=== PATIENT | male | born 1945 | race Caucasian/White ===

== ENCOUNTER 2017-05-18 06:38 | Day surgery (SDC) | payer MEDICARE, OTHER ==
[2017-05-18] VITALS (9 sets, daily range): BP systolic 118–132; BP diastolic 74–83; PULSE 58–78; RESP 16–18; TEMP 97.7–98.2; O2SAT 96–99
[~2017-05-18 06:38] MED LIST: ANDR1GEL TD; ASPI81TA82 PO; CARD240C6 PO; FURO40TA PO; HYOS0.129 PO; LIBRAX PO; LISI-363 PO; LORTA5 PO; MAGN30TA2 PO; POTA10TA48 PO; PROT40TA PO; RANI150T PO; TAB-TAB PO; TAMS0.4C67 PO; VITATAB11 PO
[2017-05-18] MEDS ORDERED: POVIDONE IODINE 5% (ANTISEPSIS KIT) 4 APPLICATIONS EACH NARE PRN (07:15)
[2017-05-18] MEDS ORDERED: SODIUM CHLORID 0.9% 500 ML IV PRN (07:15)
[2017-05-18] MEDS ORDERED: LACTATED RINGER'S 1000 ML IV PRN (07:15)
[2017-05-18] MEDS ORDERED: CHLORHEXIDINE GLUCONATE 2 % 1 PACK (2 CLOTHS) TOPICAL PRN (07:15)
[2017-05-18] MEDS ORDERED: TEST2.5G TOPICAL (07:35)
[2017-05-18] MEDS ORDERED: BUME1TAB PO (07:35)
[2017-05-18] MEDS ORDERED: FINA5TAB2 PO (07:35)
[2017-05-18] MEDS ORDERED: RANI150T PO (07:35)
[2017-05-18] MEDS ORDERED: MAGN100T2 PO (07:35)
[2017-05-18] MEDS ORDERED: MULTTAB67 PO (07:35)
[2017-05-18] MEDS ORDERED: ASPI81TA23 PO (07:35)
[2017-05-18] MEDS ORDERED: VITATAB11 PO (07:35)
[2017-05-18] MEDS ORDERED: HYOS1TAB9 PO (07:35)
[2017-05-18] MEDS ORDERED: PROT40TA PO (07:35)
[2017-05-18] MEDS ORDERED: TAMS5CAP PO (07:35)
[2017-05-18] MEDS ORDERED: APIX2.5T PO (07:35)
[2017-05-18] MEDS ORDERED: METO25TA3 PO (07:35)
[2017-05-18] MEDS ORDERED: [UNRECOGNIZED DRUG - OTHER] PO (07:35)
[2017-05-18 09:05] LABS: AUTOMATED NEUTROPHIL # 2.5 TH/MM3 (1.8-7.7); BASOPHIL % 0.6 % (0.0-2.0); EOSINOPHIL # 0.1 TH/MM3 (0-0.4); EOSINOPHIL % 1.5 % (0.0-4.0); HEMATOCRIT 36.2 % (39.0-51.0); HEMOGLOBIN 12.2 GM/DL (13.0-17.0); LYMPH % 32.9 % (9.0-44.0); LYMPHOCYTE # 1.4 TH/MM3 (1.0-4.8); MEAN CELL VOLUME 84.9 FL (80.0-100.0); MEAN CORPUSCULAR HEMOGLOBIN 28.6 PG (27.0-34.0); MEAN CORPUSCULAR HGB CONC 33.7 % (32.0-36.0); MEAN PLATELET VOLUME 8.2 FL (7.0-11.0); MONOCYTE # 0.3 TH/MM3 (0-0.9); PLATELET COUNT 170 TH/MM3 (150-450); RED BLOOD COUNT 4.27 MIL/MM3 (4.50-5.90); RED CELL DISTRIBUTION WIDTH 16.7 % (11.6-17.2); WHITE BLOOD COUNT 4.4 TH/MM3 (4.0-11.0)
[2017-05-18 10:13] LABS: ALBUMIN 3.1 GM/DL (3.4-5.0); BLOOD UREA NITROGEN 18 MG/DL (7-18); CREATININE 0.97 MG/DL (0.60-1.30); GLOMERULAR FILTRATION RATE 76 ML/MIN (>89); GLUCOSE,RANDOM 89 MG/DL (74-106); TOTAL PROTEIN 6.5 GM/DL (6.4-8.2)
[2017-05-18 10:14] LABS: ALKALINE PHOSPHATASE 95 U/L (45-117); ALT (GPT) 30 U/L (12-78); AST (GOT) 20 U/L (15-37); BICARBONATE 27.1 MEQ/L (21.0-32.0); CALCIUM 8.9 MG/DL (8.5-10.1); CHLORIDE 108 MEQ/L (98-107); SODIUM (NA) 142 MEQ/L (136-145); TOTAL BILIRUBIN ADULT 0.4 MG/DL (0.2-1.0)
[2017-05-18] MEDS: SOTALOL HCL 80 MG TAB PO SCH ×3 (10:55→21:09)
[2017-05-18] MEDS: APIXABAN 5 MG TABLET PO SCH (19:43)
--- NOTE | 2017-05-18 20:11 | EKG ---
Date Performed: 05/18/2017 Time Performed: 07:06:36 PTAGE: 71 years EKG: Atrial fibrillation Right bundle branch block Inferior/lateral ST-T changes are nonspecific Low QRS voltages in precordial leads Compared to previous tracing, the patient now appears to be in atrial fibrillation Abnormal ECG PREVIOUS TRACING : 05/30/2015 13.17 DOCTOR: Rhiannon Silva Interpretating Date/Time 05/18/2017 20:10:15
--- NOTE | 2017-05-18 20:12 | EKG ---
Date Performed: 05/18/2017 Time Performed: 09:27:06 PTAGE: 71 years EKG: Possible ectopic atrial rhythm Right bundle branch block Inferior T wave changes are nonspe cific Low QRS voltages in precordial leads Compared to previous tracing, the patient is now in an ect opic rhythm Abnormal ECG NO PREVIOUS TRACING DOCTOR: Rhiannon Silva Interpretating Date/Time 05/18/2017 20:10:33
[2017-05-18] MEDS ORDERED: TAMSULOSIN HCL 0.4 MG CAP PO SCH (21:00)
[2017-05-18] MEDS ORDERED: FAMOTIDINE 20 MG TAB PO SCH (21:00)
[2017-05-19] VITALS (11 sets, daily range): BP systolic 131–147; BP diastolic 80–85; PULSE 54–71; RESP 16–18; TEMP 98.6; O2SAT 95–98
[2017-05-19] MEDS: SOTALOL HCL 80 MG TAB PO SCH (06:03)
--- NOTE | 2017-05-19 08:58 | PD.CARD.PN ---
Subjective Subjective Remarks No complaints Objective Medications Current Medications Medications (Trade) Dose Ordered Sig/Joanne Route Start Time Stop Time Status Last Admin Lactated Ringer's 1,000 ml @ 30 mls/hr Q24H PRN IV 05/18/17 07:15 05/21/17 07:14 Sodium Chloride 500 ml @ 30 mls/hr [id number] PRN IV 05/18/17 07:15 05/21/17 07:14 05/18/17 07:20 (Betadine 5% Antisepsis Kit) 1 applic GRAIN DRIER OPERATOR PRN EACH NARE 05/18/17 07:15 05/21/17 07:14 (Chlorhexidine 2% Cloth) 3 pack GRAIN DRIER OPERATOR PRN TOPICAL 05/18/17 07:15 05/21/17 07:14 (Eliquis) 5 mg BID PO 05/18/17 21:00 05/18/17 19:43 (Betapace) 80 mg Q8HR PO 05/18/17 09:30 05/19/17 06:03 (Bumetanide) 1 mg DAILY PO 05/19/17 09:00 (Proscar) 5 mg DAILY PO 05/19/17 09:00 (Protonix) 40 mg DAILY PO 05/19/17 09:00 (Flomax) 0.4 mg HS PO 05/18/17 21:00 (Pepcid) 20 mg HS PO 05/18/17 21:00 05/18/17 21:09 Vital Signs / I&O Vital Signs Date Time Temp Pulse Resp B/P (MAP) Pulse Ox O2 Delivery O2 Flow Rate FiO2 05/19/17 08:00 98 Room Air 05/19/17 08:00 54 05/19/17 08:00 98.6 56 16 147/85 (105) 98 05/19/17 07:00 55 05/19/17 06:11 60 05/19/17 05:00 58 05/19/17 04:00 70 05/19/17 03:40 62 18 131/80 (97) 95 05/19/17 03:15 61 05/19/17 02:00 71 05/19/17 01:00 62 05/19/17 00:05 62 05/18/17 23:16 97.7 60 18 130/83 (99) 96 05/18/17 23:00 58 05/18/17 22:00 64 05/18/17 21:29 97 Room Air 05/18/17 21:00 66 05/18/17 20:00 68 05/18/17 19:46 98.2 68 16 118/74 (89) 97 05/18/17 19:00 78 05/18/17 15:00 98.0 75 16 132/75 (94) 99 05/18/17 11:00 97.8 70 16 128/77 (94) 99 I/O 05/18/17 05/18/17 05/18/17 05/19/17 05/19/17 05/19/17 07:00 15:00 23:00 07:00 15:00 23:00 Intake Total 300 ml Output Total 400 ml Balance -100 ml Intake Oral 300 ml Output Urine Total 400 ml # Voids 4 Physical Exam Alert CV [id number] tele SR with RBBB. No VT or PVC's EKG nl QT Assessment and Plan Problem List: (1) Paroxysmal atrial fibrillation ICD Codes: I48.0 - Paroxysmal atrial fibrillation Plan: Cont. Eliquis 5mg bid, Sotalol 120mg bid Kade Bernal MD May 19, 2017 08:58
[2017-05-19] MEDS ORDERED: FINASTERIDE 5 MG TAB PO SCH (09:00)
[2017-05-19] MEDS ORDERED: BUMETANIDE 1 MG TAB PO SCH (09:00)
[2017-05-19] MEDS ORDERED: PANTOPRAZOLE SOD 40 MG DELAYED RELEASE TAB PO SCH (09:00)
--- NOTE | 2017-05-19 09:21 | MR ---
cc: JANICE ROCK DATE 05/18/2017 PREOPERATIVE DIAGNOSIS Atrial fibrillation PROCEDURE Synchronized cardioversion DESCRIPTION OF PROCEDURE The patient was brought to the cardiac laboratory assistant in the fasting state. Sedation was provided by Anesthesia. He received a synchronized shock at 150 joules, 250 joules and 360 joules. It was only after the last shock that he converted to sinus rhythm. There were no complications. CONCLUSION Successful cardioversion from A. fib back to sinus rhythm. PLAN I am going to be initiating Sotalol and keep him in overnight and let him go home tomorrow morning. MD CLAY Chowdhury/MIKALA /9:11 AM /9:09 AM
[2017-05-19] MEDS: APIXABAN 5 MG TABLET PO SCH (09:35)
--- NOTE | 2017-05-19 17:24 | EKG ---
Date Performed: 05/19/2017 Time Performed: 06:09:28 PTAGE: 71 years EKG: Sinus rhythm with borderline 1st degree A-V block Right bundle branch block Inferior T wave changes are nonspecif ic Low QRS voltages in precordial leads Abnormal ECG PREVIOUS TRACING : 05/18/2017 09.27 DOCTOR: Kacey Bhandari Interpretating Date/Time 05/19/2017 17:21:02
== END 2017-05-19 10:05 | disposition home or self-care (01) ==
LOC: HDOC 06:38 → HDIC 06:38 → HCPC 10:17 → HDOC 05-19 10:05
PROVIDERS: ATTEND Internal Medicine Cardiovascular Disease
DX: I48.0 Paroxysmal atrial fibrillation (principal); I11.9 Hypertensive heart disease without heart failure; I25.10 Atherosclerotic heart disease of native coronary artery without angina pectoris; E78.5 Hyperlipidemia, unspecified; Z79.01 Long term (current) use of anticoagulants
CPT/HCPCS: 00410; 80053; 85025; 92960; 93005; J7040

== ENCOUNTER 2017-06-28 05:35 | Emergency (ER) | payer MEDICARE, OTHER ==
[~2017-06-28] VITALS: Ht 182.9 cm; Wt 126.0 kg
[~2017-06-28 05:35] MED LIST changes: -ANDR1GEL TD; +ASPI81TA23 PO; -ASPI81TA82 PO; +BUME1TAB PO; -CARD240C6 PO; +FINA5TAB2 PO; -FURO40TA PO; -HYOS0.129 PO; +HYOS1TAB9 PO; -LIBRAX PO; -LISI-363 PO; -LORTA5 PO; +MAGN100T2 PO; -MAGN30TA2 PO; +MULTTAB67 PO; -POTA10TA48 PO; -TAB-TAB PO; -TAMS0.4C67 PO; +TAMS5CAP PO; +TEST2.5G TOPICAL; +[UNRECOGNIZED DRUG - OTHER] PO
[2017-06-28 05:44] VITALS: BP 164/76; PULSE 67; RESP 16; TEMP 97.6; O2SAT 97
[2017-06-28] MEDS ORDERED: traMADol HCL 50 MG TAB PO ONE (05:45)
[2017-06-28] MEDS ORDERED: SODIUM CHLORIDE 0.9% FLUSH 10 ML FLUSH IV FLUSH PRN (06:00)
[2017-06-28] MEDS ORDERED: VITA250T3 PO (06:27)
[2017-06-28] MEDS ORDERED: APIX5TAB PO (06:27)
[2017-06-28] MEDS ORDERED: BETA80TA PO (06:27)
--- NOTE | 2017-06-28 06:37 | PD ---
HPI . complaint Chief Complaint: Complaint Time Seen by Provider: 05:38 Travel History International Travel<30 days: No Contact w/Intl Traveler<30days: No Traveled to known affect area: No History of Present Illness HPI 71-year-old male complains of dysuria urgency frequency the past 2 days, over this past evening,. Patient noted having fever, and now hematuria. Patient has history of a penile implant states he has not feels any problem with same. PFSH Past Medical History Narrative Medical Past medical history reviewed, past surgical history reviewed Hx Anticoagulant Therapy: Yes Arthritis: Yes Heart Rhythm Problems: Yes (SVT) Cancer: Yes (SKIN) Cardiac Catheterization: Yes Cardiovascular Problems: Yes (a_fib, ablation and cardiovert) High Cholesterol: No Congestive Heart Failure: No Cerebrovascular Accident: No Diabetes: No Diminished Hearing: No Endocrine: No Gastrointestinal Disorders: Yes (IBS, GERD, JOHNSON'S ESOPH.) GERD: Yes Genitourinary: Yes (PENILE PROSTH., BPH) Hepatitis: No Hiatal Hernia: Yes (REPAIRED) Hypertension: Yes Immune Disorder: No Implanted Vascular Access Dvce: Yes Kidney Stones: No Musculoskeletal: Yes (CADE. QUADRICEP TEARS) Neurologic: Yes (CERVICAL NERVE PAIN) Psychiatric: Yes (PTSD) Reproductive: No Respiratory: No Renal Failure: No Thyroid Disease: No Ulcer: No Influenza Vaccination: Yes ?: Not Past Surgical History Abdominal Surgery: Yes (CHOLECYSTECTOMY, APPY, STOMACH SURGERY) AICD: No Body Medical Devices: PENILE PROSTHESIS Genitourinary Surgery: Yes (PENILE PROSTHESIS IMPL.) Joint Replacement: No Oral Surgery: Yes (TONSILLECTOMY) Pacemaker: No Other Surgery: Yes Social History Alcohol Use: No Tobacco Use: No Substance Use: No Allergies-Medications (Allergen,Severity, Reaction): Coded Allergies: adhesive (Unverified Allergy, Severe, SKIN BREAK, 06/28/17) Reported Meds & Prescriptions Reported Meds & Active Scripts Active Reported Vitamin C (Ascorbic Acid) 250 Mg Tab 1,000 Mg PO DAILY Eliquis (Apixaban) 5 Mg Tab 5 Mg PO BID Betapace (Sotalol HCl) 80 Mg Tab 60 Mg PO BID Vitamin B Complex (B-Complex Vitamins) 1 Tab 1 Mg PO DAILY Magnesium Citrate 100 Mg Tab Unknown Dose PO DAILY PRN Multiple Vitamin 1 Tab 1 Tab PO DAILY Finasteride 5 Mg Tab 5 Mg PO DAILY Do not crush. Testosterone Topical (Testosterone) 50 Mg/5 Gram (1 %) Gel 100 Mg TOPICAL DAILY [liberax] Unknown Dose PO DIRECTED Hyoscyamine (Hyoscyamine Sulfate) 0.125 Mg Tab 0.375 Mg PO Q4H Ranitidine (Ranitidine HCl) 150 Mg Tab 150 Mg PO HS Protonix (Pantoprazole Sodium) 40 Mg Tab 40 Mg PO DAILY Flomax (Tamsulosin HCl) 0.4 Mg Cap 0.4 Mg PO HS Bumetanide 1 Mg Tab 1 Mg PO DAILY Aspirin EC (Aspirin) 81 Mg Tabdr 81 Mg PO DAILY Narrative Medication Allergies and medications reviewed Review of Systems Except as stated in HPI: all other systems reviewed are Neg General / Constitutional: Positive: Fever, Chills Eyes: No: Visual changes HENT: No: Headaches Cardiovascular: No: Chest Pain or Discomfort Respiratory: No: Shortness of Breath Gastrointestinal: No: Abdominal Pain Genitourinary: Positive: Urgency, Frequency, Dysuria, Hematuria, No: Decreased Urinary Output, Oliguria, Pelvic Pain, Flank Pain Musculoskeletal: No: Pain Skin: No Rash Neurologic: No: Weakness Psychiatric: No: Depression Endocrine: No: Polydipsia Hematologic/Lymphatic: No: Easy Bruising Physical Exam Narrative GENERAL: Awake alert oriented 3 no acute distress vital signs afebrile normal stable SKIN: Warm and dry. Color is normal no diaphoresis on his HEAD: Atraumatic. Normocephalic. EYES: Pupils equal and round. No scleral icterus. No injection or drainage. ENT: No nasal bleeding or discharge. Mucous membranes pink and moist. NECK: Trachea midline. No JVD. Supple nontender full range of motion CARDIOVASCULAR: Regular rate and rhythm. S1-S2 no murmurs rubs gallops RESPIRATORY: No accessory muscle use. Clear to auscultation. Breath sounds equal bilaterally. GASTROINTESTINAL: Abdomen soft, non-tender, nondistended. Hepatic and splenic margins not palpable. MUSCULOSKELETAL: Extremities without clubbing, cyanosis, or edema. No obvious deformities. No CVA tenderness NEUROLOGICAL: Awake and alert. No obvious focal deficits PSYCHIATRIC: Appropriate mood and affect; insight and judgment normal. Data Data Last Documented VS Vital Signs Date Time Temp Pulse Resp B/P (MAP) Pulse Ox O2 Delivery O2 Flow Rate FiO2 06/28/17 06:17 20 06/28/17 05:44 97.6 67 164/76 (105) 97 Orders Orders Tramadol (Ultram) (06/28/17 05:45) Complete Blood Count With Diff (06/28/17 05:49) Comprehensive Metabolic Panel (06/28/17 05:49) Prothrombin Time / Inr (Pt) (06/28/17 05:49) Act Partial Throm Time (Ptt) (06/28/17 05:49) Urinalysis - C+S If Indicated (06/28/17 05:49) Iv Access Insert/Monitor (06/28/17 05:49) Ecg Monitoring (06/28/17 05:49) Oximetry (06/28/17 05:49) Sodium Chloride 0.9% Flush (Ns Flush) (06/28/17 06:00) Blood Culture (06/28/17 05:49) MDM Medical Decision Making Medical Screen Exam Complete: Yes Emergency Medical Condition: Yes Medical Record Reviewed: Yes Differential Diagnosis Urinary tract infection, pyelonephritis, Narrative Course Awaiting laboratory studies. Case signed out to oncoming ED attending pending all studies. Armando Price MD Jun 28, 2017 06:36
[2017-06-28 06:50] VITALS: O2SAT 98
[2017-06-28 06:55] VITALS: TEMP 98
[2017-06-28 07:02] LABS: AUTOMATED NEUTROPHIL # 6.8 TH/MM3 (1.8-7.7); BASOPHIL % 0.3 % (0.0-2.0); EOSINOPHIL # 0.1 TH/MM3 (0-0.4); EOSINOPHIL % 1.5 % (0.0-4.0); HEMATOCRIT 40.3 % (39.0-51.0); HEMOGLOBIN 13.4 GM/DL (13.0-17.0); LYMPH % 13.7 % (9.0-44.0); LYMPHOCYTE # 1.2 TH/MM3 (1.0-4.8); MEAN CELL VOLUME 84.2 FL (80.0-100.0); MEAN CORPUSCULAR HGB CONC 33.2 % (32.0-36.0); MONO % 5.3 % (0.0-8.0); MONOCYTE # 0.5 TH/MM3 (0-0.9); NEUT % 79.2 % (16.0-70.0); PLATELET COUNT 173 TH/MM3 (150-450); RED BLOOD COUNT 4.78 MIL/MM3 (4.50-5.90); RED CELL DISTRIBUTION WIDTH 16.3 % (11.6-17.2); WHITE BLOOD COUNT 8.6 TH/MM3 (4.0-11.0)
[2017-06-28 07:14] LABS: CHLORIDE 106 MEQ/L (98-107); SODIUM (NA) 138 MEQ/L (136-145)
[2017-06-28 07:17] LABS: PROTHROMBIN TIME - PATIENT 10.1 SEC (9.8-11.6)
[2017-06-28 07:18] LABS: CALCIUM 9.1 MG/DL (8.5-10.1)
[2017-06-28 07:19] LABS: ALBUMIN 3.4 GM/DL (3.4-5.0); BICARBONATE 24.1 MEQ/L (21.0-32.0); BLOOD UREA NITROGEN 15 MG/DL (7-18); GLUCOSE,RANDOM 81 MG/DL (74-106)
[2017-06-28 07:22] LABS: ALT (GPT) 27 U/L (12-78); AST (GOT) 18 U/L (15-37); CREATININE 0.88 MG/DL (0.60-1.30); GLOMERULAR FILTRATION RATE 85 ML/MIN (>89)
[2017-06-28 07:24] LABS: TOTAL BILIRUBIN ADULT 0.7 MG/DL (0.2-1.0); TOTAL PROTEIN 7.7 GM/DL (6.4-8.2)
[2017-06-28 07:25] LABS: ALKALINE PHOSPHATASE 104 U/L (45-117)
[2017-06-28 08:02] LABS: BILIRUBIN, URINE NEG (NEG); BLOOD, URINE LARGE (NEG); GLUCOSE,URINE NEG (NEG); KETONE, URINE TRACE mg/dL (NEG); NITRITE,URINE NEG (NEG); PH, URINE 5.5 (5.0-8.5); URINE LEUKOCYTE ESTERASE MOD (NEG)
[2017-06-28 08:12] LABS: URINE COLOR ORANGE (YELLW/STRAW)
[2017-06-28 08:19] LABS: WBC, URINE INNUM /hpf (0-5); WHITE BLOOD CELL CLUMPS FEW
[2017-06-28 08:20] LABS: BACTERIA, URINE FEW /hpf; RBC, URINE 100-200 /hpf (0-3); SQUAMOUS EPITHELIAL CELL URINE 0-5 /hpf (0-5)
[2017-06-28 08:28] VITALS: BP 146/75; PULSE 58; RESP 16; O2SAT 96
[2017-06-28] MEDS ORDERED: MACR100C2 PO (09:07)
--- NOTE | 2017-06-28 09:07 | PD ---
Physical Exam Narrative GENERAL: SKIN: Warm and dry. HEAD: Atraumatic. Normocephalic. EYES: Pupils equal and round. No scleral icterus. No injection or drainage. ENT: No nasal bleeding or discharge. Mucous membranes pink and moist. NECK: Trachea midline. No JVD. CARDIOVASCULAR: Regular rate and rhythm. RESPIRATORY: No accessory muscle use. Clear to auscultation. Breath sounds equal bilaterally. GASTROINTESTINAL: Abdomen soft, non-tender, nondistended. MUSCULOSKELETAL: Extremities without clubbing, cyanosis, or edema. No obvious deformities. NEUROLOGICAL: Awake and alert. No obvious cranial nerve deficits. Motor grossly within normal limits. Five out of 5 muscle strength in the arms and legs. Normal speech. PSYCHIATRIC: Appropriate mood and affect; insight and judgment normal. Data Data Last Documented VS Vital Signs Date Time Temp Pulse Resp B/P (MAP) Pulse Ox O2 Delivery O2 Flow Rate FiO2 06/28/17 08:28 58 16 146/75 (98) 96 Room Air 06/28/17 06:55 98.0 Orders Orders Tramadol (Ultram) (06/28/17 05:45) Complete Blood Count With Diff (06/28/17 05:49) Comprehensive Metabolic Panel (06/28/17 05:49) Prothrombin Time / Inr (Pt) (06/28/17 05:49) Act Partial Throm Time (Ptt) (06/28/17 05:49) Urinalysis - C+S If Indicated (06/28/17 05:49) Iv Access Insert/Monitor (06/28/17 05:49) Ecg Monitoring (06/28/17 05:49) Oximetry (06/28/17 05:49) Sodium Chloride 0.9% Flush (Ns Flush) (06/28/17 06:00) Blood Culture (06/28/17 05:49) Urine Culture (06/28/17 07:13) Ceftriaxone Inj (Rocephin Inj) (06/28/17 09:15) Labs Laboratory Tests Test 06/28/17 06:41 06/28/17 07:13 White Blood Count 8.6 TH/MM3 Red Blood Count 4.78 MIL/MM3 Hemoglobin 13.4 GM/DL Hematocrit 40.3 % Mean Corpuscular Volume 84.2 FL Mean Corpuscular Hemoglobin 28.0 PG Mean Corpuscular Hemoglobin Concent 33.2 % Red Cell Distribution Width 16.3 % Platelet Count 173 TH/MM3 Mean Platelet Volume 8.0 FL Neutrophils (%) (Auto) 79.2 % Lymphocytes (%) (Auto) 13.7 % Monocytes (%) (Auto) 5.3 % Eosinophils (%) (Auto) 1.5 % Basophils (%) (Auto) 0.3 % Neutrophils # (Auto) 6.8 TH/MM3 Lymphocytes # (Auto) 1.2 TH/MM3 Monocytes # (Auto) 0.5 TH/MM3 Eosinophils # (Auto) 0.1 TH/MM3 Basophils # (Auto) 0.0 TH/MM3 CBC Comment AUTO DIFF Differential Comment AUTO DIFF CONFIRMED Prothrombin Time 10.1 SEC Prothromb Time International Ratio 1.0 RATIO Activated Partial Thromboplast Time 28.0 SEC Blood Urea Nitrogen 15 MG/DL Creatinine 0.88 MG/DL Random Glucose 81 MG/DL Total Protein 7.7 GM/DL Albumin 3.4 GM/DL Calcium Level 9.1 MG/DL Alkaline Phosphatase 104 U/L Aspartate Amino Transf (AST/SGOT) 18 U/L Alanine Aminotransferase (ALT/SGPT) 27 U/L Total Bilirubin 0.7 MG/DL Sodium Level 138 MEQ/L Potassium Level 3.8 MEQ/L Chloride Level 106 MEQ/L Carbon Dioxide Level 24.1 MEQ/L Anion Gap 8 MEQ/L Estimat Glomerular Filtration Rate 85 ML/MIN Urine Color ORANGE Urine Turbidity CLOUDY Urine pH 5.5 Urine Specific [place] 1.010 Urine Protein 100 mg/dL Urine Glucose (UA) NEG mg/dL Urine Ketones TRACE mg/dL Urine Occult Blood LARGE Urine Nitrite NEG Urine Bilirubin NEG Urine Urobilinogen 0.2 MG/DL Urine Leukocyte Esterase MOD Urine RBC 100-200 /hpf Urine WBC INNUM /hpf Urine WBC Clumps FEW Urine Squamous Epithelial Cells 0-5 /hpf Urine Bacteria FEW /hpf Microscopic Urinalysis Comment CULTURE INDICATED MDM Medical Record Reviewed: Yes Supervised Visit with SHILOH: No Narrative Course CBC shows no leukocytosis, no anemia, normal platelet count. And a mild left shift and neutrophilia 79%. Coagulation profile within normal limits Complete metabolic profile shows normal electrolytes, normal kidney function, normal liver function. UA shows findings consistent with a moderate to severe UTI. Plan will be to provide the patient with IV Rocephin here in the department, discharged on Macrobid p.o. as well since the patient is tolerating p.o. Diagnosis Primary Impression: Ascending cystitis Patient Instructions: General Instructions, Urinary Tract Infection in Men (DC) Scripts Nitrofurantoin Monohydrate Macrocrystals (Macrobid) 100 Mg Capsule 100 MG PO BID for Infection for 7 Days, #14 CAP 0 Refills Prov: Nikko Nguyen MD 06/28/17 Disposition: 01 DISCHARGE HOME Condition: Stable Nikko Nguyen MD Jun 28, 2017 09:07
[2017-06-28] MEDS ORDERED: cefTRIAXone INJ 1,000 MG in SODIUM CHLORIDE 0.9% INJ 100 ML IV ONE (09:30)
== END 2017-06-28 10:14 | disposition home or self-care (01) ==
LOC: PHED 05:35
DX: N30.81 Other cystitis with hematuria (principal); B96.4 Proteus (mirabilis) (morganii) as the cause of diseases classified elsewhere; M19.90 Unspecified osteoarthritis, unspecified site; I48.91 Unspecified atrial fibrillation; I10 Essential (primary) hypertension; F43.10 Post-traumatic stress disorder, unspecified; Z79.01 Long term (current) use of anticoagulants; Z79.82 Long term (current) use of aspirin
CPT/HCPCS: 80053; 81001; 85025; 85610; 85730; 87040; 87077; 87086; 87186; 96365; 99284; J0696